=== PATIENT | female | born 1980 | race Caucasian/White ===

== ENCOUNTER 2022-03-12 17:43 | Emergency (ER) | payer BC, OTHER ==
[2022-03-12 18:03] VITALS: BP 123/87; PULSE 86; RESP 18; TEMP 98.9; BMI 23.8
[2022-03-12] MEDS ORDERED: IBUPROFEN 600 MG TABLET (FP) PO ONE ×2 (18:17→18:20)
== END 2022-03-12 18:48 | disposition home or self-care (01) ==
LOC: FER 17:43
DX: S60.212A Contusion of left wrist, initial encounter (principal); Y99.8 Other external cause status
CPT/HCPCS: 73110-TC-LT-FY; 99283-25